=== PATIENT | female | born 1955 | race Caucasian/White ===

== ENCOUNTER 2025-04-29 13:10 | Emergency (ER) | payer MEDICARE, SELFPAY ==
[2025-04-29 13:14] VITALS: BP 155/69; PULSE 87; RESP 20; TEMP 36.7; O2SAT 93; BMI 23.2
--- NOTE | 2025-04-29 13:14 | ED_ITS ---
HPI - Neuro Symptoms/Deficit General Chief Complaint: General Medical Stated Complaint: Pcp sent pt here, numbness on extremities? Time Seen by Provider: 04/29/25 14:19 History of Present Illness ED Provider: Pino BRIAN Narrative: The patient is a 70-year-old female who comes to the emergency room because she has been having stiffness in her legs and arms which is making walking difficult. She says that these symptoms has been bothering her for about 3 or 4 months. Yesterday her stiffness and her walking felt even worse than usual. This morning she decided to not take a dose of her lamotrigine to see if this might help. She subsequently called her primary care doctor's office and was advised to come to the emergency room for evaluation. The patient says that in addition to lamotrigine she is on Depakote, Wellbutrin, trazodone, and oxycodone (for chronic back pain). The patient walks with a cane because of chronic back pain. She does not describe any recent illnesses or other conditions. She has had no fever, sweats, chills. No urinary symptoms. No bowel or bladder control problems. Related Data Allergies Allergy/AdvReac Type Severity Reaction Status Date / Time No Known Allergies Allergy Verified 04/29/25 13:19 Review of Systems 2 Review of Systems: Yes all other systems are reviewed and are negative [facility] Social History Social History Smoked in Last 30 Days: No Use of substances other than those prescribed or required for medical reasons: No Advance Directives: No Advance Directives Information Provided: Yes Do you have a plan to hurt others: No Plan Physical Exam 2 Vital Signs: Vital Signs: Last Vital Signs Temp 97.3 F 04/29/25 16:16 Pulse 77 04/29/25 16:16 Resp 16 04/29/25 16:16 BP 123/53 L 04/29/25 16:16 Pulse Ox 96 04/29/25 16:16 O2 Del Method Room Air 04/29/25 16:16 BMI result Body Mass Index 23.2 Const: Other: The patient is a slim 70-year-old who was awake and alert. She does not appear obviously acutely ill. HEENT: Other: The face is symmetrical. ?Mucous membranes moist. Eyes: Other: Pupils are round equal, conjunctivae are clear, extraocular movements intact Neck: Neck: Yes normal visual inspection, Yes full ROM and Yes no JVD Resp: Effort & Inspection: normal respiratory effort Auscultation: clear to auscultation bilaterally Cardio: Rate: regular rate Rhythm: regular rhythm Heart sounds: S1 normal heart sound present and S2 normal heart sound present GI: Other: Abdomen is soft and nontender Skin: Other: The skin is dry and unremarkable Neuro: Other: The patient is awake and alert with a normal mental status although she has a an anxious affect. Cranial nerves are grossly intact. She has 5/5 strength in her extremities. She has 2+ reflexes at the knees and at the ankles. Also 2+ reflexes at the biceps. One to 2+ reflex at the right triceps. I had some difficulty eliciting a left triceps reflex. Toes were equivocal bilaterally. Sensation was intact throughout. Extrem: Other: There is no calf swelling or tenderness. No asymmetry. No peripheral edema. Course Course Course Narrative: This is a Rapid Medical Exam performed in triage by Lexis Leigh PA-C. Full HPI, ROS and PE to be performed by primary ED provider. 70 yo F presenting to the ED c/o leg stiffness/trouble walking, difficulty swallowing intermittent x months - sx worse yesterday - believes sx are related to Lamictal (has been taking x10yrs). Sent in by PCP for ?GBS. PE: talking in complete sentences, ambulating with cane w/steady gait. shaky. Nonfocal Plan: EKG, labs Medications Administered Discontinued Medications Generic Name Dose Route Start Last Admin Trade Name Freq PRN Reason Stop Dose Admin Lactated Ringer's 1,000 mls @ 999 mls/hr 04/29/25 14:45 04/29/25 16:17 Lr IV 04/29/25 15:45 Infused .Q1H1M JOSE Infusion Medical Decision Making Medical Decision Making MDM Narrative: The patient is a very pleasant 70-year-old who describes several months of feeling a lot of stiffness in her legs and also in her arms. She apparently has recently been concerned that this might be a side effect of lamotrigine which she has been taking for some time. Today she did not take the lamotrigine. She felt her stiffness has been worse yesterday and she thought that perhaps stopping lamotrigine might be barajas. She also contacted her primary care doctor's office and was advised to come to the emergency room. I find the patient has a physical exam, particularly her neurological exam, which is very reassuring from the point of view of any acutely dangerous process. She seems to have intact strength, intact sensation, an intact reflexes of her extremities. basic labs are unremarkable. Vital signs are unremarkable. She seems well. She was able to walk. I think she may be discharged to follow up with her PCP or return if worse. I do not see an indication for a spinal tap or imaging. Lab Data 04/29/25 14:41 04/29/25 14:41 Labs: Lab Results 04/29/25 04/29/25 Range/Units 14:41 15:34 WBC 12.4 H (4.8-10.8) X10*3/uL RBC 4.78 (4.20-5.50) X10*6/uL Hgb 13.8 (12.0-16.0) g/dl Hct 41.8 (37.0-47.0) % MCV 87.4 (80.0-98.0) fL MCH 28.9 (27.0-33.0) pg MCHC 33.0 (31.0-35.0) g/dl RDW 13.1 (11.0-16.0) % Plt Count 335 (160-400) X10*3/uL MPV 8.9 L (9.4-12.3) fL Immature Gran % (Auto) 0.4 (0.0-0.4) % Neut % (Auto) 72.2 (45-73) % Lymph % (Auto) 17.5 L (20-40) % Bollinger % (Auto) 9.3 (2-11) % Eos % (Auto) 0.2 (0-4) % Baso % (Auto) 0.4 (0-2) % Lymph # (Auto) 2.2 (1.2-4.9) X10*3/uL Bollinger # (Auto) 1.2 (0.1-1.2) X10*3/uL Eos # (Auto) 0.0 (0.0-0.4) X10*3/uL Baso # (Auto) 0.1 (0.0-0.2) X10*3/uL Abs Immat Gran (auto) 0.05 H (0.00-0.03) X10*3/uL Absolute Neuts (auto) 9.0 H (2.0-8.3) x10*3/uL Absolute Nucleated RBC 0.000 (0.0-0.012) X10*3/uL Nucleated RBC % (auto) 0.0 (0.0-0.2) /100WBC Sodium 139 (135-145) mmol/L Potassium 4.4 (3.3-5.1) mmol/L Chloride 105 (96-108) mmol/L Carbon Dioxide 26 (22-29) mmol/L Anion Gap 12 (12-20) BUN 21 H (9-16) mg/dL Creatinine 0.68 (0.5-1.4) mg/dL Estim Creat Clear Calc 59.1 Estimated GFR > 60 Random Glucose 104 (60-115) mg/dL Calcium 9.9 (8.4-10.2) mg/dL Magnesium 2.2 (1.6-2.6) mg/dL Total Bilirubin 0.2 (0.0-1.0) mg/dL Direct Bilirubin < 0.2 (0.0-0.5) mg/dL AST 17 (5-31) U/L ALT 20 (0-31) U/L Alkaline Phosphatase 79 (39-117) U/L Total Creatine Kinase 60 (26-140) U/L Total Protein 6.5 (6.5-8.0) g/dL Albumin 4.2 (3.5-5.0) g/dL Urine Color Yellow Urine Appearance Clear Urine pH 7.0 (5.0-9.0) Ur Specific [place] 1.015 (1.005-1.025) Urine Protein Negative (Neg-Trace) mg/dL Urine Glucose (UA) Negative (Negative) mg/dL Urine Ketones Negative (Negative) mg/dL Urine Blood Negative (Negative) Urine Nitrite Negative (Negative) Ur Leukocyte Esterase Trace H (Negative) Urine RBC 0-2 (0-2) /HPF Urine WBC 0-5 (0-5) /HPF Ur Squamous Epith Cells 0-2 (0-2) /HPF Urine Bacteria None Seen (None Seen) Hyaline Casts 0-2 (0-2) /LPF Valproic Acid < 12.5 L (50.0-100.0) mcg/mL Influenza Type A (PCR) NEGATIVE (Negative) Influenza Type B (PCR) NEGATIVE (Negative) RSV RNA Qual (PCR) NEGATIVE (Negative) SARS-CoV-2 RNA (RT-PCR) NEGATIVE (Negative) Discharge Plan Discharge Clinical Impression: Generalized weakness Patient Disposition: Home, Self-Care Additional Instructions: My impression is that you do not have Guillain-[place] syndrome. We are not finding anything that is dramatically wrong today. Please continue your regular medications. You may stop the lamotrigine if you wish to stop lamotrigine. Please contact your regular doctor's office for a follow up appointment soon for a recheck and further discussion of your symptoms. Return to the emergency room if significantly worse. Referrals: Ann Marie Calderon MD [Primary Care Provider, Internal Medicine] Interventions: ED Discharge Assessment Last Done: 04/29/25 16:16 Discharge Date/Time: 04/29/25 16:17 Print Language: Macedonian
--- NOTE | 2025-04-29 13:20 | ECG_ITS ---
Test Reason : TINGLING IN JAW Blood Pressure : */* mmHG Vent. Rate : 80 BPM Atrial Rate : 80 BPM P-R Int : 138 ms QRS Dur : 80 ms QT Int : 374 ms P-R-T Axes : 56 -33 57 degrees QTcB Int : 431 ms Normal sinus rhythm Possible Left atrial enlargement Left axis deviation Abnormal ECG No previous ECGs available Referred By: Lexis Leigh Electronically Signed By: KELI GR MD
--- OUTSIDE RECORDS SUMMARY | 2025-04-29 14:25 | XMS_ITS | Encounter Summary ---
Author Organization [facility] Address [address] [place] [address] Phone Care Team Providers Care Geomorphologist Name Role Phone Ann Marie Calderon MD Primary Care Provider [phone] Encounter Details Date Type Department Care Team (Late st Contact Info) Description 03/24/2025 Orders Only [facility] Department Virtual Deparment [address] [place] [address] Gail Cedeno, [facility] [address] [place] [address] [email or web address] Social History Tobacco Use Types Packs/Day Years Used Date Smoking Tobacco: Never Assessed Education Answer Date Recorded Are you interested in more education? Not on caroline e 09/11/2022 Are you concerned about learning? Not on file 09/11/2022 No 09/11/2022 No 09/11/2022 Digital Access Answer Date Recorded No 09/30/2022 No 09/30/2022 Reliable internet access at home? Not on file 09/30/2022 Device with a working camera? Not on file Comments Unknown Sex and Gender Information Value Date Recorded Sex Assigned at Not on file Legal Sex Female 9:58 PM EDT Gender Identity Not on file Sexual Orientation Not on file documented as of this encounter Plan of Treatment Not on file documented as of this encounter Visit Diagnoses Not on filedocumented in this encounter Care Teams Geomorphologist Relationship Specialty Start Date End Date Ann Marie Calderon MD [address] [place] [phone] PCP - General 02/18/17 documented as of this encounter Additional Source Comments The information contained in this document represents components of the legal health record. It is not the complete legal health record.[facility]
--- OUTSIDE RECORDS SUMMARY | 2025-04-29 14:25 | XMS_ITS ---
Author Name [facility] Organization Unknown Care Team Organization Name Specialty Phone Email Start Date End [facility]
--- OUTSIDE RECORDS SUMMARY | 2025-04-29 14:25 | XMS_ITS | Clinical Summary ---
Author Organization [facility] Address [address] [place] [address] Phone Care Team Providers Care Sawmill Or Timber Yard Worker Name Role Phone Ann Marie Calderon MD Primary Care Provider [phone] Allergies No known active allergies Medications amLODIPine (NORVASC) 10 mg tablet Take 1 tablet (10 mg total) by mouth 1 (one) time each day. 4 Active buPROPion (WELLBUTRIN) 100 mg tablet Take 1 tablet (100 mg total) by mouth 2 (two) times a day. 5 Active divalproex (DEPAKOTE) [address] tablet Take 1 tablet (250 mg total) by mouth 1 (one) time each day in the morning. 5 Active gabapentin (NEURONTIN) 100 mg capsule Take 1 capsule (100 mg total) by mouth 2 (two) times a day. 4 Active lamoTRIgine (LaMICtal) 100 mg tablet Take 1 tablet (100 mg total) by mouth 1 (one) time each day. 5 Active metroNIDAZOLE (METROGEL) 0.75 % gel Apply topically 2 (two) times a day. 4 Active Myrbetriq 50 mg tablet extended release 24 hr 24 hr tablet Take 1 tablet (50 mg total) by mouth 1 (one) time each day. 5 Active omeprazole (PriLOSEC) [address] capsule Take 1 capsule (40 mg total) by mouth 1 (one) time each day. do not crush or chew 5 Active oxyCODONE-aceta minophen (PERCOCET) 5-325 mg per tablet Take 1 tablet by mouth every 8 (eight) hours if needed. for pain 5 Active tiZANidine (ZANAFLEX) 2 mg tablet Take 1 tablet (2 mg total) by mouth every 8 (eight) hours if needed for muscle spasms. 5 Active traZODone (DESYREL) 300 mg tablet Take 1 tablet (300 mg total) by mouth at bedtime. at bedtime 5 Active nystatin (MYCOSTATIN) cream Apply topically 2 (two) times a day. 5 Active bisacodyL (DULCOLAX) 5 mg EC tablet Take 2 tablets by mouth right before beginning bowel prep. See instructions provided by the office 2 tablet 5 Active polyethylene glycol (Golytely) 236-22.74-6.74 -5.86 gram solution Take 4L by mouth once for one dose. May substitue any PEG. Starting at 6PM the night before your procedure drink 1 8oz glasses at your own pace until you complete half of the gallon. Finish 2nd half of the gallon 5 hours before your procedure. 4000 mL 5 Active bisacodyL (DULCOLAX) 5 mg EC tablet Take 2 tablets by mouth right before beginning bowel prep. See instructions provided by the office 2 tablet 5 Active polyethylene glycol (Golytely) 236-22.74-6.74 -5.86 gram solution Take 4L by mouth once for one dose. May substitue any PEG. Starting at 2PM the day before your procedure drink 1 8oz glasses at your own pace until you complete half of the gallon. Finish 2nd half of the gallon at 8PM. 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 Question if constipation may be contributing to nausea and worsening reflux. Patient is due for colonoscopy, add on EGD for further evaluation. Primary insomnia 05/22/2022 Other chronic pain 05/22/2022 Kidney infection 05/22/2022 Skin anomaly 05/22/2022 Seasonal affective disorder 05/22/2022 Rosacea 05/22/2022 Urge incontinence of urine 05/22/2022 Surgical History Surgery Date Site/Laterality Comments COLONOSCOPY 06/02/2019 TA x 2, recall 3 years HYSTERECTOMY ESOPHAGOGASTRODUODENOSCOPY 06/05/2012 ESOPHAGOGASTRODUODENOSCOPY 06/21/2004 Fundic gland polyp COLONOSCOPY 06/21/2004 Moderate active colitis Family History Medical History Relation Name Comments Colon cancer Neg Hx Colon polyps Neg Hx Social History Tobacco Use Types Packs/Day Years Used Date Smoking Tobacco: Never Smokeless Tobacco: Never Tobacco Cessation:Counseling Given: Not Answered Alcohol Use Standard Drinks/Week Comments Never 0 (1 standard drink = 0.6 oz pur e alcohol) Comments Unknown Sex and Gender Information Value Date Recorded Sex Assigned at Not on file Legal Sex Female 11:03 AM EST Gender Identity Not on file Sexual Orientation Not on file Last Filed Vital Signs Vital Sign Reading Time Taken Comments Blood Pressure - - Pulse - - Temperature - - Respiratory Rate - - Oxygen Saturation - - Inhaled Oxygen Concentration - - Weight 56.3 kg (124 lb 3.2 oz) 10/19/2024 1:34 P M EDT Height 154.9 cm (5' 1 ) 10/19/2024 1:34 PM EDT Body Mass Index 23.47 10/19/2024 1:34 PM EDT Plan of Treatment Health Maintenance Due Date Last Done Comments Breast Cancer Screening 1955 Zoster Vaccines (1 of 2) 2003 Falls Risk Assessment 04/02/2022 Hepatitis C Screening 04/02/2022 Medicare Annual Wellness Visit 04/02/2022 Osteoporosis Screening (Bone Density Screening) 04/02/2022 Social Influencers of Health Screening 04/02/2022 Depression Screening 05/05/2024 COVID-19 Vaccine ( season) 2025 02/13/2024, 09/26/2023, 01/27/2023, Additional history exists Influenza Vaccine (#1) 2025 , 2023, 02/20/2022, Additional history exists Cholesterol Screening (Lipid Panel) 01/01/2029 01/02/2024 DTaP,Tdap,and Td Vaccines (5 - Td or Tdap) 11/24/2030 11/24/2020, 06/30/2015, 11/17/2004, Additional history exists Colorectal Cancer Screening: Colonoscopy 12/01/2034 12/01/2024 RSV Immunization Adult Patients Completed 04/14/2023 Pneumococcal Vaccine: 50+ Years Completed 01/26/2024 HIB Vaccines Aged Out No longer eligi ble based on patient's age to complete this topic HPV Vaccines Aged Out No longer eligi ble based on patient's age to complete this topic Hepatitis A Vaccines Aged Out No long er eligible based on patient's age to complete this topic Hepatitis B Vaccines Aged Out No long er eligible based on patient's age to complete this topic IPV Vaccines Aged Out No longer eligi ble based on patient's age to complete this topic MMR Vaccines Aged Out No longer eligi ble based on patient's age to complete this topic Meningococcal ACWY Vaccine Aged Out N o longer eligible based on patient's age to complete this topic Meningococcal B Vaccine Aged Out No l onger eligible based on patient's age to complete this topic RSV Immunization Patients Under 20 months Aged Out No longer eligible based on patient's age to complete this topic Varicella Vaccines Aged Out No longer eligible based on patient's age to complete this topic Procedures Procedure Name Priority Date/Time Associated Diagnosis Comments COLONOSCOPY Routine 12/01/2024 9:53 AM EDT from Last 3 Months or Most Recently Relevant to Health Maintenance Results * COLONOSCOPY (12/01/2024 9:53 AM EDT) Anatomical Region Laterality Modality Endoscopy us Historical Provider GI~PROCEDURE ORDERABLES F inal Result from Last 3 Months or Most Recently Relevant to Health Maintenance Insurance MEDICARE [facility] Care Teams Sawmill Or Timber Yard Worker Relationship Specialty Start Date End Date Ann Marie Calderon MD [address] [place] [id number] PCP - General Internal Medicine 07/28/24
--- OUTSIDE RECORDS SUMMARY | 2025-04-29 14:25 | XMS_ITS | Clinical Summary ---
Author Organization [facility] Address [address] [place] [address] Phone Care Team Providers Care Lan Manager Name Role Phone Ann Marie Calderon MD Primary Care Provider [phone] Active Problems Problem Noted Date Diagnosed Date Age-related osteoporosis wit h current pathological fracture with delayed healing 09/11/2022 Encounters Date Type Department Care Team Description 03/24/2025 Orders Only [facility] Department Virtual Deparment [address] [place] [address] Gail Cedeno RPH from Last 3 Months Social History Tobacco Use Types Packs/Day Years [...] Sign Reading Time Taken Comments Blood Pressure 108/64 08/05/2012 2:12 AM EDT Pulse - - Temperature - - Respiratory Rate - - Oxygen Saturation - - Inhaled Oxygen Concentration - - Weight 59 kg (130 lb) 08/05/2012 2:12 AM EDT Height 156.2 cm (5' 1.5 ) 08/05/2012 2:12 AM EDT Body Mass Index 24.17 08/05/2012 2:12 AM EDT Plan of Treatment Not on file Medical Devices Not on file Insurance UNITED POS UNITED POS UNITED POS UNITED POS UNITED POS UNITED POS POS POS POS Member Subscriber Plan / Payer (Ef fective 2016-Present) Name:Kassandra Bermudez Relation to Subscriber:Spouse Name:LARALUDIN Brower (Home) Address: [address] [place] [address] Payer ID:[id number] (NAIC) Type:POS Address: [address] [place] [id number] Care Teams Lan Manager Relationship Specialty Start Date End Date Ann Marie Calderon MD [address] [place] [id number] [email or web address] PCP - General 02/18/17 Additional Source Comments The information contained in this document represents components of the legal health record. It is not the complete legal health record.[facility]
--- OUTSIDE RECORDS SUMMARY | 2025-04-29 14:25 | XMS_ITS | Encounter Summary ---
Author Organization [employer] Address [address] [place] [address] Care Team Providers Care Public Health Analyst Name Role Phone Ann Marie Calderon MD Primary Care Provider [phone] Encounter Details Date Type Department Care Team (Late st Contact Info) Description 07/23/2024 Orders Only [facility] [address] [place] [address] Ann Marie Calderon MD [address] [place] [address] Social History Tobacco Use Types Packs/Day Years Used Date Smoking Tobacco: Former Cigarettes 0.3 3 1 970 - 7123 Passive Smoke Exposure: Past Smokeless Tobacco: Never Alcohol Use Standard Drinks/Week Comments Not Currently 0 (1 standard drink = 0.6 oz pur e alcohol) Alcohol Answer Date Recorded How often do you have a drink containing alcohol ? 0 07/21/2024 How many drinks containing a lcohol do you have on a typical day when you are drinking? 0 07/21/2024 How often do you have six or more drinks on one occasion? 0 07/21/2024 Housing Stability Answer Date Recorded What is your housing situation today? I have cliff ge 07/21/[address] you li ve. Do you have problems with any of the following? None of the above 07/21/2024 Food Insecurity Answer Date Recorded Within the past 12 months, y ou worried that your food would run out before you got money to buy more: Never True 07/21/2024 Within the past 12 months,th e food you bought just didn't last and you didn't have enough money to get more: Never True Transportation Answer Date Recorded In the past 12 months, has l ack of transportation kept you from medical appts, meetings, work or from getting things needed for daily living? No 07/21/2024 Utilities Answer Date Recorded In the past 12 months, has t he electric, gas, oil or water company threatened to shut off services in your home? No 07/21/2024 Depression Answer Date Recorded Patient Health Questionnaire-2 Score 0 07/21/2024 Internet Access Answer Date Recorded Internet Access Q1 Yes 07/21/2024 Internet Access Q2 Not on file 07/21/2024 Comments Unknown Sex and Gender Information Value Date Recorded Sex Assigned at Female 06/04/2022 10:29 AM EST Legal Sex Female 8:36 PM EDT Gender Identity Female 06/04/2022 10:29 AM EST Sexual Orientation Straight 06/04/2022 10 :29 AM EST Occupation Industry Job Start Date Job End Date Retired Not on file Not on file Not on file documented as of this encounter Plan of Treatment Not on file documented as of this encounter Procedures Procedure Name Priority Date/Time Associated Diagnosis Comments XR HIP 2 OR 3 VIEWS LEFT Routine 11/17/2023 3:18 PM EDT documented in this encounter Results * XR Hip 2 or 3 Views Left (11/17/2023 3:18 PM EDT) Anatomical Region Laterality Modality Lower Extremities, Hip Left Radiograp hic Imaging Ann Marie Calderon MD IMG XR PROCEDURES Final Result documented in this encounter Visit Diagnoses Not on filedocumented in this encounter Care Teams Public Health Analyst Relationship Specialty Start Date End Date Ann Marie Calderon MD [address] [place] [phone] PCP - General Internal Medicine 06/04/22 documented as of this encounter
--- OUTSIDE RECORDS SUMMARY | 2025-04-29 14:25 | XMS_ITS | Encounter Summary ---
Author Organization [employer] Address [address] [facility] [address] [place] [address] Care Team Providers Care Visual Specialist Name Role Phone Ann Marie Calderon MD Primary Care Provider [phone] Reason for Visit * Reason Onset Date Comments Med Refill 10/08/2024 Encounter Details Date Type Department Care Team ([facility] st Contact Info) Description 10/08/2024 Refill [facility] [address] [place] [phone] Sonja Ruiz NP Post-herpetic polyneuropathy; Chronic SI joint pain Social History Tobacco Use Types Packs/Day Years Used Date Smoking Tobacco: Former Cigarettes 0.3 3 1 970 - 1972 Passive Smoke Exposure: Past Smokeless Tobacco: Never [...] documented as of this encounter Visit Diagnoses Diagnosis Post-herpetic polyneuropathy Postherpetic polyneuropathy Chronic SI joint pain Disorders of sacrum documented in this encounter Care Teams Visual Specialist Relationship Specialty Start Date End Date Ann Marie Calderon MD [address] [place] [id number] PCP - General Internal Medicine 06/04/22 documented as of this encounter
--- OUTSIDE RECORDS SUMMARY | 2025-04-29 14:25 | XMS_ITS | Clinical Summary ---
Author Organization [employer] Address [address] [facility] [address] [place] [address] Care Team Providers Care Professor Of Radiology Name Role Phone Ann Marie Calderon MD Primary Care Provider [phone] Allergies Active Allergy Reactions Criticality Noted Date Comments Alendronate 05/22/2022 Other reaction(s): upset stomach Codeine 05/22/2022 Other reaction(s): itch Ibandronate 05/22/2022 Other reaction(s): GI upset Molds & Smuts 06/04/2022 Other 07/01/2023 Other Reaction(s): yeast - AMIN Sulfa Antibiotics 05/22/2022 Other reaction(s): itchy Tyloxapol 05/22/2022 Other reaction(s): itch Medications Diclofenac Sodium 1 % gel 03/11/20 22 Active Multiple Vitamins-Minera ls (Centrum Adults) tablet as directed Orally Active metroNIDAZOLE (Metrogel) 0.75 % gel Apply topically 2 times daily. 45 g 2 01/02/20 24 Active divalproex (Depakote) 250 MG EC tabletIndicatio ns:Persistent depressive disorder Take 1 tablet (250 mg) by mouth in the morning. 90 tablet 3 07/06/19 25 Active omeprazole (PriLOSEC) [address] capsuleIndicati ons:Gastroesoph ageal reflux disease, unspecified whether esophagitis present Take 1 capsule (40 mg) by mouth Once per day. Do not crush or chew. 90 capsule 3 07/20/19 25 2025 Active traZODone (Desyrel) 300 MG tabletIndicatio ns:Persistent depressive disorder Take 1.5 tablets at bedtime 135 tablet 3 08/06/19 25 Active mometasone (Nasonex) 50 MCG/ACT nasal sprayIndication s:Seasonal allergies Administer 2 sprays into each nostril 2 times daily. 17 g 5 09/08/19 25 2025 Active buPROPion (Wellbutrin) 75 MG tablet Take 1 tablet (75 mg) by mouth 3 times daily. 270 tablet 3 10/01/19 25 2025 Active gabapentin (Neurontin) 300 MG capsuleIndicati ons:Post-herpet ic polyneuropathy, Chronic SI joint pain Take 1 capsule (300 mg) by mouth 2 times daily. 180 capsule 3 12/01/19 25 2025 Active amLODIPine (Norvasc) 10 MG tabletIndicatio ns:Primary hypertension Take 1 tablet (10 mg) by mouth Once per day. 90 tablet 3 12/10/19 25 2025 Active lisinopril 10 MG tabletIndicatio ns:Primary hypertension Take 1 tablet (10 mg) by mouth Once per day. 30 tablet 01/18/20 25 2025 Active lamoTRIgine (LaMICtal) 100 MG tabletIndicatio ns:Bipolar affective disorder, currently depressed, mild (CMS/HCC) (HCC) Take 1 tablet (100 mg) by mouth Once per day. 90 tablet 02/08/20 25 Active zolpidem (Ambien) 5 MG tabletIndicatio ns:Primary insomnia Take 1 tablet (5 mg) by mouth if needed at bedtime for sleep. As needed 30 tablet 02/18/20 25 Active tiZANidine (Zanaflex) 2 MG tabletIndicatio ns:Other chronic pain Take 1 tablet (2 mg) by mouth every 6 (six) hours if needed for muscle spasms. 30 tablet 03/18/20 25 Active hydrOXYzine HCl (Atarax) 25 MG tabletIndicatio ns:Anxiety disorder with panic attacks Take 1 tablet (25 mg) by mouth every 8 (eight) hours if needed for anxiety. May repeat X 1 in 1 hour if ineffective 45 tablet 03/22/20 25 Active Myrbetriq 50 MG 24 hr tabletIndicatio ns:Urge incontinence of urine Take 1 tablet (50 mg) by mouth Once per day. 90 tablet 3 03/24/20 25 2025 Active busPIRone (Buspar) 5 MG tabletIndicatio ns:Anxiety TAKE 5MG BID X 7 DAYS, THEN INCREASE TO 10MG IN AM AND 5MG AT NIGHT X 7 DAYS, THEN INCREASE TO 10MG TWICE DAILY x 14 DAYS. 91 tablet 03/24/20 Active oxyCODONE-aceta minophen (Percocet) 5-325 MG tabletIndicatio ns:Compression fracture of lumbar vertebra with delayed healing, unspecified lumbar vertebral level, subsequent encounter Take 1 tablet by mouth every 6 (six) hours if needed for moderate pain or severe pain. 120 tablet 04/07/20 25 2025 Active oxyCODONE-aceta minophen (Percocet) 5-325 MG tabletIndicatio ns:Compression fracture of lumbar vertebra with delayed healing, unspecified lumbar vertebral level, subsequent encounter Take 1 tablet by mouth every 6 (six) hours if needed for moderate pain or severe pain. 120 tablet 03/11/20 25 2024 Discontinued(R eorder (will not trigger notification to Pharmacy)) predniSONE (Deltasone) 20 MG tablet Take 2 tablets by mouth Once per day. 03/08/20 25 2024 Discontinued Active Problems Problem Noted Date Diagnosed Date Chronic SI joint pain 09/07/2024 Seasonal allergies 09/07/2024 Trigeminal neuralgia of left side of face 2024 Narrowing of intervertebral disc space Acute pain associated with herpes zoster 025 Post-herpetic polyneuropathy 08/26/2024 Jaw pain 12/11/2023 Assessment & Plan (12/11/2023 12:09 PM EDT): 2 weeks progressive R jaw pain following dental work. Pain increased with opening jaw wide, chewing things of substance such as sandwich. Pain radiating to R ear and R hinduism. Intermittent headache to R hinduism area usually at end of day. Negative eye pain/vision changes/fevers/redness/swelling. Advised conservative treatment. Pt reports unable to tolerated NSAIDs d/t GI Se. Advised rest, scheduled tylenol 500-1000 mg TID over the next few days, muscle relaxer as prescribed. Common SE reviewed. Advised follow up if no improvement, next steps following in person exam consider exercises/physical therapy/imaging. Return precautions reviewed; seek medical care right away in person for any severe/worsening/new symptoms ie- intractable pain/fevers/eye pain or vision changes/etc. Compression fracture of lumb ar vertebra with delayed healing 04/21/2023 GERD (gastroesophageal reflux disease) 3 Back pain 05/22/2022 Assessment & Plan (05/07/2023 11:06 AM EST): Ongoing. States she has had a Toradol injection before, in the spring, with a visit with [facility] Asking for one today. Will be doing a 5d oral dosing bid for follow up if pain persists. Discussed it can only be used short term and cannot have any refills. [facility] Rust will be administering the injection. The pt has no new complaints other than her ongoing regular pain. No CP/diff breathing/shortness of breath. No numbness or tingling. No nausea/vomiting/diarrhea. Discussed SE/AE of the injection and oral medication. Follow up as needed. Depression 05/22/2022 Rosacea 05/22/2022 Skin anomaly 05/22/2022 Seasonal affective disorder 05/22/2022 Kidney infection 05/22/2022 Other chronic pain 05/22/2022 Osteoporosis 05/22/2022 Bipolar disorder 05/22/2022 Primary insomnia 05/22/2022 Urge incontinence of urine 05/22/2022 Resolved Problems Problem Noted Date Diagnosed Date Resolved Date Prediabetes 05/22/2022 07/01/2023 Encounters Date Type Department Care Team Description 04/29/2025 Telephone [facility] [address] [place] [address] Ann Marie Calderon MD Medication Reaction 04/11/2025 12:20 PM EST Telemedicine [address] [address] Ann Marie Calderon MD Anxiety disorder with panic attacks (Primary Dx); Chronic low back pain without sciatica, unspecified back pain laterality 04/06/[address] [address] Ann Marie Calderon MD Compression fracture of lumbar vertebra with delayed healing, unspecified lumbar vertebral level, subsequent encounter 04/04/[address] [address] Ann Marie Calderon MD Compression fracture of lumbar vertebra with delayed healing, unspecified lumbar vertebral level, subsequent encounter 03/21/[address] [address] Ann Marie Calderon MD Anxiety; Shaking Hands; Limp and Heavy Body 03/17/[address] [address] Heidi Diaz MD Other chronic pain (Primary Dx) 03/10/2025 11:00 AM EST Office Visit [address] [address] Anton Vivas MD Type 2 diabetes mellitus without complication, without long-term current use of insulin ([facility]) 03/07/[address] [address] Ann Marie Calderon MD Compression fracture of lumbar vertebra with delayed healing, unspecified lumbar vertebral level, subsequent encounter 02/18/2025 12:30 PM EDT Nurse Only [address] [address] Reyna Linn RN Chronic low back pain without sciatica, unspecified back pain laterality (Primary Dx) 02/18/[address] [address] Ann Marie Calderon MD Back Pain; New Med Request 02/07/[address] [address] Ann Marie Calderon MD Compression fracture of lumbar vertebra with delayed healing, unspecified lumbar vertebral level, subsequent encounter 02/05/[address] [address] Ann Marie Calderon MD Bipolar affective disorder, currently depressed, mild (CMS/HCC) (HCC) 02/01/[address] [address] Ann Marie Calderon MD request home health aid services from Last 3 Months Immunizations Immunization Administration Dates Next Due COVID-19 Non-US Vaccine, Pro duct Unknown 02/05/2022 Influenza High-dose Quadriva lent Preservative Free 2023 Influenza Whole 02/20/2022, 0,02/16/2019,2017,03/13/2017,02/14/2016,02/27/2015,1 ,02/15/2013,03/16/2012, 012,03/07/2011,02/26/2010 Influenza, High Dose Seasona l, Preservative Free 02/20/2022,03/13/2020 Influenza, IIV3, injectable 2023,1 ,02/16/2019,2017,03/13/2017,02/14/2016,02/27/2015 Influenza, Split (incl. macy fied surface antigen) 02/04/2014,02/15/2013,03/16/2012,2011,03/07/2011,02/26/2010 Influenza, trivalent, adjuvanted 02/13/2024 Moderna Covid-19 Vaccine 12+ 02/13/2024, 09/26/2023,07/26/2020,2020 Pfizer Covid-19 Vaccine 12+ 07/26/2020, Pneumococcal Conjugate PCV 20 01/26/2024 RSV Adjuvant 04/14/2023 TD (adult), 2 Lf tetanus tox oid, preservative free, adsorbed 11/17/2004 Tdap 11/24/2020,06/30/2015,11/17/2004 Family History Medical History Relation Name Comments Diabetes Brother 1 Brother 1: aliv e, Diabetes Prostate cancer Father Father: dece ased 51 yrs, Lung Cancer, ? prostate cancer too Heart attack Mother Mother: d 67 yrs, [place], DM, very heavy smoker, alcoholism, anxiety Asthma Sister 1 Sis - endometri osis, asthma, rheumatoid Sister with elevated heartrate sister with ballder cancer Sister with heart disease bladder cancer Sister 2 Heart disease Sister 3 Rheum arthritis Sister 4 Relation Name Status Comments Brother 1 Alive Brother 2 Alive Father Mother Sister 1 Alive Sister 2 Alive Sister 3 Alive Sister 4 Alive Social History Tobacco Use Types Packs/Day Years Used Date Smoking Tobacco: Former Cigarettes 0.3 3 1 0 - 1972 Passive Smoke Exposure: Past Smokeless Tobacco: Never Tobacco Cessation:Counseling Given: Not Answered Alcohol Use Standard Drinks/Week Comments Not Currently [...] file Not on file Not on file Last Filed Vital Signs Vital Sign Reading Time Taken Comments Blood Pressure 110/64 03/10/2025 11:08 AM EST Pulse 80 03/10/2025 11:08 AM EST Temperature 36.4 C (97.5 F) 03/10/2025 11:08 AM EST Respiratory Rate 16 03/10/2025 11:08 AM EST Oxygen Saturation 92% 11/12/2024 3:56 PM EDT Inhaled Oxygen Concentration - - Weight 57.2 kg (126 lb) 03/10/2025 11:08 AM EST Height 157.5 cm (5' 2 ) 03/10/2025 11:08 AM EST Body Mass Index 23.05 03/10/2025 11:08 AM EST Plan of Treatment Health Maintenance Due Date Last Done Comments CT Colonography 1953 FIT DNA/Cologuard 1953 FIT 1953 FOBT 1953 Sigmoidoscopy 1953 Eye Exam 1963 Hepatitis C Screening 1971 Mammogram 02/24/2015 02/24/2013 Diabetes: Urine Protein Screening 07/01/2024 07/01/2023 Lipid Panel 01/01/2025 01/02/2024, 06/06, 07/09/2022, Additional history exists COVID-19 Vaccine ( season) 2025 02/13/2024, 09/26/2023, 01/27/2023, Additional history exists Diabetes: Foot Exam 02/12/2025 02/13/2024, 02/13/2024, 01/02/2024, Additional history exists Diabetes: Hemoglobin A1C 02/25/2025 025, 01/02/2024, 07/01/2023, Additional history exists Zoster Vaccines (2 of 2) 03/01/2025 01/04/2025 Alcohol/Substance Use Screening 07/21/2025 07/21/2024 Depression Screening 07/21/2025 07/21/2024, 07/22/19 25 SDOH Screening 07/21/2025 07/21/2024 Tobacco Screening 03/10/2026 03/10/2025 DTaP/Tdap/Td Vaccines (4 - Td or Tdap) 11/24/2030 11/24/2020, 06/30/2015, 11/17/2004, Additional history exists Colonoscopy 12/01/2034 12/01/2024, 05/06, 06/02/2019 Colorectal Cancer Screening 12/01/2034 RSV Patients and Patients Aged 60 years or older Completed 04/14/2023 Pneumococcal Vaccine: 50+ Years Completed 01/26/2024 Influenza Vaccine Completed 01/04/2025, , 2023, Additional history exists HIB Vaccines Aged Out No longer eligi [...] patient's age to complete this topic Meningococcal Vaccine Aged Out No malcolm mee eligible based on patient's age to complete this topic RSV under 20 months Aged Out No longe r eligible based on patient's age to complete this topic Rotavirus Vaccines Aged Out No longer eligible based on patient's age to complete this topic Procedures Procedure Name Priority Date/Time Associated Diagnosis Comments POCT GLUCOSE ([id number]) Routine 03/10/2025 11:30 AM EST Type 2 diabetes mellitus without complication, without long-term current use of insulin (HCC) POCT GLYCOSYLATED HEMOGLOBIN (HGB A1C) Routine 08/26/2024 5:01 PM EDT Type 2 diabetes mellitus without complication, without long-term current use of insulin (CMS/HCC) LIPID PANEL, STANDARD Routine 01/02/2024 12:54 PM EDT Type 2 diabetes mellitus without complication, without long-term current use of insulin (CMS/HCC) MICROALBUMIN, RANDOM (W CREAT) Routine 07/01/2023 9:56 AM EST Type 2 diabetes mellitus without complication, without long-term current use of insulin (CMS/HCC) COLONOSCOPY Routine 06/02/2019 MAMMOGRAPHY Routine 02/24/2013 from Last 3 Months or Most Recently Relevant to Health Maintenance Results * POCT glucose manually resulted (03/10/2025 11:30 AM EST) Glucose Blood, POC 169 60 - 200 mg/dL Blood Capillary blood specimen / Unknown 03/10/2025 11:30 AM EST Anton Vivas MD POINT OF CARE TEST ENTER/EDIT OR DERABLES Final Result * (ABNORMAL) POCT glycosylated hemoglobin (Hgb A1c) (08/26/2024 5:01 PM EDT) Hemoglobin A1C 6.1(A) 4.0 - 6.0 % Blood Capillary blood specimen / Unknown 08/26/2024 5:01 PM EDT Sonja Ruiz NP POINT OF CARE TEST EN TER/EDIT ORDERABLES Final Result * (ABNORMAL) Lipid Panel, Standard (01/02/2024 12:54 PM EDT) Cholesterol, Total 227(H) 100 - 199 mg/dL [facility] Triglycerides 113 0 - 149 mg/dL [facility] HDL Cholesterol 72 >39 mg/dL [facility] VLDL Cholesterol Earnest 20 5 - 40 mg/dL [facility] LDL Chol Calc (NIH) 135(H) 0 - 99 mg/dL [facility] 1 Blood Venous blood specimen / Unknown 01/02/2024 12:54 PM EDT 01/02/2024 Narrative [facility] 1 - 01/03/2024 6:05 AM EDT Performed at: 01 - [facility] [id number] Spectral Scientist: Kaylynn Larose MD, Phone: [phone] Ann Marie Calderon MD LAB BLOOD ORDERABLES Final Resul t Performing Organization Address [facility] Co de Phone Number [facility] * (ABNORMAL) Microalbumin, Random Urine w/Creatinine (07/01/2023 9:56 AM EST) [facility] Micro-Albumin 34.0(H) (<20) MG/L [facility] Comment: The urine microalbumin test is designed to monitor renal function. When screening for Bence Bryson proteinuria, urine electrophoresis is recommended. Malb/Creat Ratio 30.5(H) (0-20) MG/GM [facility] Urine Creat For Micro Albumin 110.0 MG/DL [facility] Comment: Testing performed or reported by [facility], a Service of [facility], [address] [place] [id number] Russ Elias MD, Assistant Associate Full Professor [facility]# [id number] Urine 07/01/2023 9:56 AM EST 07/01/2023 9:57 AM EST Ann Marie Calderon MD LAB URINE ORDERABLES Final Resul t Performing Organization Address [facility] de Phone Number [address] [address] * Colonoscopy (06/02/2019) [facility] Colonoscopy diverticulo sis. normal colon. repeat in 3 years Historical Provider HEALTH MAINTENANCE Final Result * Mammography (02/24/2013) [facility] Mammogram No mammographic evidenc of malignancy/ Anatomical Region Laterality Modality Other Historical Provider HEALTH MAINTENANCE Final Result from Last 3 Months or Most Recently Relevant to Health Maintenance Insurance MEDICARE [facility] MEDEX MEDICARE SUPPLEMENT Care Teams Professor Of Radiology Relationship Specialty Start Date End Date Ann Marie Calderon MD [address] [place] [id number] PCP - General Internal Medicine 06/04/22
--- OUTSIDE RECORDS SUMMARY | 2025-04-29 14:25 | XMS_ITS | Clinical Summary ---
Author Organization [facility] Address [address] [place] [address] Care Team Providers Care Echocardiographer Name Role Phone Unavailable Primary Care Provider Unavailabl e Social History Tobacco Use Types Packs/Day Years Used Date Smoking Tobacco: Never Assessed Comments Unknown Sex and Gender Information Value Date Recorded Sex Assigned at Not on file Legal Sex Female 12:23 AM EDT Gender Identity Not on file Sexual Orientation Not on file Plan of Treatment Health Maintenance Due Date Last Done Comments Hepatitis C Screening 1953 DTaP/Tdap/Td (1 - Tdap) 1971 Mammogram/Breast Imaging 1993 Pneumococcal 50+ years (1 of 1 - PCV) 2003 Zoster (Shingrix) (1 of 2) 2003 Bone Density 2018 COVID-19 Vaccine ( - 2024-2 6 season) 2025 Influenza (#1) 2025 RSV (1 - 1-dose 75+ series) 2028 HPV Vaccine (No Doses Required) Completed Hep A Aged Out No longer eligi ble based on patient's age to complete this topic Hep B Aged Out No longer eligi ble based on patient's age to complete this topic Hib Aged Out No longer eligi ble based on patient's age to complete this topic Meningococcal ACWY Aged Out No longer eligible based on patient's age to complete this topic Pap Smear Discontinued Zoster (Zostavax) Discontinued
--- OUTSIDE RECORDS SUMMARY | 2025-04-29 14:25 | XMS_ITS | Encounter Summary ---
Author Organization [employer] Address [address] [facility] [address] [place] [address] Care Team Providers Care Corporate Attorney Name Role Phone Ann Marie Calderon MD Primary Care Provider [phone] Encounter Details Date Type Department Care Team ([facility] st Contact Info) Description 01/12/2024 Orders Only [place] MED[facility] [address] [place] [address] Yocasta Call LPN Social History Tobacco Use Types Packs/Day Years Used Date Smoking Tobacco: Former Cigarettes 0.3 3 1 970 - 1972 Passive Smoke Exposure: Past Smokeless Tobacco: Never Alcohol Use Standard Drinks/Week Comments Not Currently 0 (1 standard drink = 0.6 oz pur e alcohol) Housing Stability Answer Date Recorded What is your housing situation today? I have cliff ge 07/01/[address] you li ve. Do you have problems with any of the following? None of the above 07/01/2023 Food Insecurity Answer Date Recorded Within the past 12 months, y ou worried that your food would run out before you got money to buy more: Never True 07/01/2023 Within the past 12 months,th e food you bought just didn't last and you didn't have enough money to get more: Never True Transportation Answer Date Recorded In the past 12 months, has l ack of transportation kept you from medical appts, meetings, work or from getting things needed for daily living? No 07/01/2023 Utilities Answer Date Recorded In the past 12 months, has t he electric, gas, oil or water company threatened to shut off services in your home? No 07/01/2023 Depression Answer Date Recorded Patient Health Questionnaire-2 Score 1 07/01/2023 Comments Unknown Sex and Gender Information Value [...] on filedocumented in this encounter Care Teams Corporate Attorney Relationship Specialty Start Date End Date Ann Marie Calderon MD [address] [place] [id number] PCP - General Internal Medicine 06/04/22 documented as of this encounter
--- OUTSIDE RECORDS SUMMARY | 2025-04-29 14:25 | XMS_ITS | Encounter Summary ---
Author Organization [employer] Address [address] [facility] [address] [place] [address] Care Team Providers Care Semiconductors Wafer Breaker Name Role Phone Ann Marie Calderon MD Primary Care Provider [phone] Reason for Visit * Reason Onset Date Comments Medication Reaction 04/29/2025 Encounter Details Date Type Department Care Team ([facility] Contact Info) Description 04/29/2025 Telephone [facility] MEDICAL [address] [place] [address] Ann Marie Calderon MD [address] [place] [address] Medication Reaction Social History Tobacco Use Types Packs/Day Years [...] your housing situation today? I have cliff sing 07/21/[address] you li [...] on file documented as of this encounter Miscellaneous Notes * Telephone Encounter - Reyna Linn RN - 04/29/2025 11:25 AM EST Spoke with Kassandra regarding her medication reaction. She states she knows that it is the Lamictal as she took it by itself yesterday and felt as though it was hard to swallow and her throat felt asthough it might be closing. Also, had trouble moving her legs after taking it. Advised her not to take said medication again and to seek treatment in the ER. She denies SOB or chest pain at this time. No feelings of throat closing at this time either. States she will go to the ER for evaluation. [facility] updated and in agreement with plan. * Telephone Encounter - Nita Smith - 04/29/2025 10:13 AM EST Pt called and stated she is having a bad reaction to her medication. It has paralyzed her leg, she cannot bend them. She states she can't stop taking it because it will cause seizures if she suddenlystops. Needs a call back from a nurse [facility]. [phone] documented in this encounter Plan of Treatment Not on file documented as of this encounter Visit Diagnoses Not on filedocumented in this encounter Care Teams Semiconductors Wafer Breaker Relationship Specialty Start Date End Date Ann Marie Calderon MD [address] [place] [id number] PCP - General Internal Medicine 06/04/22 documented as of this encounter
--- OUTSIDE RECORDS SUMMARY | 2025-04-29 14:25 | XMS_ITS | Encounter Summary ---
Author Organization [employer] Address [address] [facility] 7t [place] [address] Care Team Providers Care Trailers And [employer] Salesperson Name Role Phone Ann Marie Calderon MD Primary Care Provider [phone] Reason for Visit * Reason Onset Date Comments Med Refill 04/06/2025 DUPLICATE CS Rx 04/06/2025 Encounter Details Date Type Department Care Team (Late st Contact Info) Description 04/06/2025 Refill [facility] MEDICAL [address] [place] [address] Ann Marie Calderon MD [address] [place] [address] Compression fracture of lumbar vertebra with delayed healing, unspecified lumbar vertebral level, subsequent encounter Social History Tobacco Use Types Packs/Day Years Used Date Smoking Tobacco: Former Cigarettes 0.3 3 1 970 - 1973 Passive Smoke Exposure: Past Smokeless Tobacco: Never [...] encounter Miscellaneous Notes * Telephone Encounter - JULIANA Brennan - 04/07/2025 8:55 AM EST Denied - patient requested a refill too soon and there is a TE created for this refill. This encounter addressed. * Telephone Encounter - Magi Landry - 04/06/2025 3:25 PM EST Raúl duval [place] documented in this encounter Plan of Treatment Not on file documented as of this encounter Visit Diagnoses Diagnosis Compression fracture of lumbar vertebra with delayed healing, unspecified lumbar vertebral level, subsequent encounter documented in this encounter Care Teams [employer] Salesperson Relationship Specialty Start Date End Date Ann Marie Calderon MD [address] [place] [address] PCP - General Internal Medicine 06/04/22 documented as of this encounter
[2025-04-29 14:47] LABS: MANUAL DIFF FLAG NO
[2025-04-29 14:48] LABS: Hematocrit 41.8 % (37.0-47.0); Hemoglobin 13.8 g/dl (12.0-16.0); Imm Gran Abs Auto 0.05 X10*3/uL (0.00-0.03); Imm Gran Pct Auto 0.4 % (0.0-0.4); Lymphocytes Absolute Auto 2.2 X10*3/uL (1.2-4.9); Mean Corpuscular HGB Conc 33.0 g/dl (31.0-35.0); Mean Corpuscular Hemoglobin 28.9 pg (27.0-33.0); Mean Corpuscular Volume 87.4 fL (80.0-98.0); NRBC Abs Auto 0.000 X10*3/uL (0.0-0.012); NRBC Pct Auto 0.0 /100WBC (0.0-0.2); Platelet Count 335 X10*3/uL (160-400); Red Blood Count 4.78 X10*6/uL (4.20-5.50); White Blood Count 12.4 X10*3/uL (4.8-10.8)
[2025-04-29 15:05] LABS: Anion Gap 12 (12-20); Blood Urea Nitrogen 21 mg/dL (9-16); Calcium 9.9 mg/dL (8.4-10.2); Carbon Dioxide 26 mmol/L (22-29); Chloride 105 mmol/L (96-108); Creatinine Clr Calc Pharmacy 59.1; Estimated Glomerular Filt Rate > 60; Magnesium 2.2 mg/dL (1.6-2.6); Potassium 4.4 mmol/L (3.3-5.1); Sodium 139 mmol/L (135-145)
[2025-04-29 15:06] LABS: Alanine Aminotransferase 20 U/L (0-31); Albumin Level 4.2 g/dL (3.5-5.0); Alkaline Phosphatase 79 U/L (39-117); Aspartate Amino Transferase 17 U/L (5-31); Total Protein 6.5 g/dL (6.5-8.0)
[2025-04-29 15:26] LABS: Resp Syncy Virus RNA Qual PCR NEGATIVE (Negative); SARS COV2 PCR INHOUSE NEGATIVE (Negative)
[2025-04-29 15:28] VITALS: BP 123/53; PULSE 77; RESP 16; TEMP 36.3; O2SAT 96
[2025-04-29] MEDS: Lactated Ringers 1,000 ML 999 ML IV (15:32)
[2025-04-29 15:42] LABS: Appearance Urine Clear; Glucose Urine UA Negative (Negative); PH 7.0 (5.0-9.0); Specific Gravity - Urine 1.015 (1.005-1.025); UMIC TRIGGER UACC YES
[2025-04-29 16:16] VITALS: BP 123/53; PULSE 77; RESP 16; TEMP 36.3; O2SAT 96
[2025-05-02 15:08] LABS: Lamotrigine Lamictal 4.1 mcg/mL (2.5-15.0)
== END 2025-04-29 16:17 | disposition home or self-care (01) ==
PROVIDERS: Physician Assistant; Emergency Provider Emergency Medicine; PCP Internal Medicine
DX: R20.0 Anesthesia of skin (principal); R53.1 Weakness; Z79.899 Other long term (current) drug therapy; Z03.818 Encounter for observation for suspected exposure to other biological agents ruled out
CPT/HCPCS: 36415; 80048; 80076; 80164; 80175; 81001; 82550; 83735; 85025; 87637; 93005; 96360; 99284; 99285; J7120

== ENCOUNTER → 2025-04-29 13:20 | Outpatient (BNV) | payer MEDICARE, SELFPAY | PROVIDERS: Emergency Provider Emergency Medicine; PCP Internal Medicine; Visit Provider Internal Medicine Cardiovascular Disease | DX: R94.31 Abnormal electrocardiogram [ECG] [EKG] (principal); R53.1 Weakness | CPT/HCPCS: 93010 ==